=== PATIENT | female | born 1955 | race Caucasian/White ===

== ENCOUNTER 2022-01-06 23:32 | Inpatient (IN) | payer OTHER ==
[2022-01-07] MEDS ORDERED: ONDANSETRON 4 MG/2 ML VIAL IV PRN (00:44)
[2022-01-07] MEDS ORDERED: IPRATROPIUM BROM 0.5MG/2.5ML NEB PRN (00:44)
[2022-01-07] MEDS ORDERED: ALBUTEROL 2.5 MG/3 ML NEB SOL NEB PRN (00:44)
--- NOTE | 2022-01-07 00:57 | P.HP ---
Certification for Inpatient Patient admitted to: Inpatient With expected LOS: >2 Midnights Patient will require the following post-hospital care: None Practitioner: I am a practitioner with admitting privileges, knowledge of patient current condition, hospital course, and medical plan of care. Services: Services provided to patient in accordance with Admission requirements found in Title 42 Section 412.3 of the Code of Federal Regulations Patient History Date of Service: 01/07/22 History of Present Illness: 66-year-old female with history of CAD, hypertension, hyperlipidemia, tobacco abuse presents to the emergency department at outside hospital early yesterday for shortness of breath. She reports that around 0800 yesterday she began to experience shortness of breath at rest and with exertion. She reports similar shortness of breath when she last experienced her myocardial infarction in June of this year, at that time she had a heart catheterization and 1 stent was placed at [facility]. She was subsequently admitted at [facility] for suspected COPD exacerbation her initial troponin was negativehigh-sensitivity around 20, second high-sensitivity troponin was 230.4, BNP was 1616 sodium 142 potassium 4.4 chloride 105 bicarb 26 glucose 199 BUN 20 creatinine 1.19 GFR 48 LFTs within normal range White blood cell count was 11.7 chest x-ray showed comparable appearance of apparent ill-defined opacities at the right lung base since 06/13/2021 suggest at least some appearance is related to overlying soft tissues, component of pneumonia also appears likely. No definite pleural effusion or pneumothorax. Normal cardiac silhouette. CT PE protocol was also performed which revealed no pulmonary embolism is identified. Mild, relatively dependent groundglass opacities within the lower lobes bilaterally. While an infection/inflammatory process is possible given appearance and location these are favored to represent atelectatic changes and/or scarring. Trace right-sided pleural effusion. Incidental 2 mm pulmonary nodule. Follow-up is not required unless patient is high risk in which case follow-up CT of his chest may be considered in 12 months. Her EKG was without ST elevations, she denies any chest pain. She was transferred over to our facility for further evaluation and management of NSTEMI, dyspnea suspected COPD. Allergies No Known Allergies Allergy (Unverified 01/07/22 00:14) Home Medications: Aspirin [Aspirin EC 81 MG] 81 mg PO DAILY 01/07/22 Atorvastatin Calcium [Lipitor] 40 mg PO DAILY 01/07/22 Carvedilol [Coreg] 3.125 mg PO BID 01/07/22 Lisinopril [Zestril] 5 mg PO DAILY 01/07/22 Ticagrelor [Brilinta*] 90 mg PO BID 01/07/22 - Past Medical/Surgical History -: CAD -: Hypertension -: Hyperlipidemia -: x3 Psychosocial/ Personal History: Patient is retired, lives at home with her daughter - Family History Sister -: Cancer (Long) - Social History Smoking Status: Current every day smoker Counseled patient to stop smoking for: less than 10 minutes Smoking therapy provided: No Place of Residence: Home Review of Systems 10-point ROS is otherwise unremarkable Respiratory: Shortness of Breath Physical Examination - Physical Exam General: Alert, In no apparent distress, Oriented x3 HEENT: Atraumatic, PERRLA, Mucous membr. moist/pink, EOMI, Sclerae nonicteric Neck: Supple, 2+ carotid pulse no bruit, No LAD, Without JVD or thyroid abnormality Respiratory: Diminished, Expiratory wheezes Cardiovascular: No edema, Regular rate/rhythm, Normal S1 S2 Capillary refill: <2 Seconds Gastrointestinal: Normal bowel sounds, No tenderness Musculoskeletal: No tenderness Integumentary: No rashes Neurological: Normal speech, Normal strength at 5/5 x4 extr, Normal tone, Normal affect Assessment and Plan - Plan Assessment: NSTEMIhistory CAD Dyspnea Hypertension Hyperlipidemia Incidental finding2 mm right lower lobe pulmonary nodule Plan: NSTEMIhistory CAD: Initial troponin 20, second troponin 230, third troponin pending. Referring physician reported patient received therapeutic Lovenox, patient unsure we will attempt to verify. Continue aspirin, statin, carvedilol, Brilinta. She had a heart catheterization with stent placement in June of this year. She denies any chest pain although she reports a similar presentation of the last CT. Cardiology consulted, echocardiogram ordered. We will monitor on telemetry. Dyspnea: Patient with some mild expiratory wheezing suspect some COPD component, as needed nebulizer treatments ordered continue oral steroids, incentive spirometry. Supplemental oxygen if needed. Hypertension: Home medications continued Hyperlipidemia: Home medications continued Incidental finding2 mm right lower lobe pulmonary nodule: Recommendation as patient is high risk/smoker is for repeat CT scan within 12 months, this was discussed with patient. DVT PPX: Therapeutic Lovenox Code status: Full Discharge Plan: Home Plan to discharge in: 48 Hours - Advance Directives Does patient have a Living Will: No Does patient have a Durable POA for Healthcare: No - Code Status/Comfort Care Code Status Assessed: Yes (Full code) Critical Care: No Time Spent Managing Pts Care (In Minutes): 70
[2022-01-07 01:32] VITALS: BMI 47.1
[2022-01-07] MEDS ORDERED: ACETAMINOPHEN 500 MG TAB PO PRN (01:37)
[2022-01-07 04:09] LABS: Absolute Lymphocytes (CBC) 0.5 K/uL (0.7-4.9); Hematocrit 39.5 % (36.0-45.0); Lymphocytes % 6.8 % (15.3-44.8); MCV 85.5 fL (80-100); MPV 8.4 fL (7.6-11.3); RBC Red Blood Cell Count 4.62 M/uL (3.86-4.86)
[2022-01-07 04:27] LABS: Albumin 3.6 g/dL (3.4-5.0); Bilirubin Total 0.6 mg/dL (0.2-1.0); Potassium 3.6 mmol/L (3.5-5.1); Protein, Total 7.1 g/dL (6.4-8.2)
[2022-01-07 04:36] LABS: Troponin High Sensitivity 352.3 pg/mL (<58.9)
[2022-01-07] MEDS ORDERED: PNEUMOCOCCAL VACCINE 0.5 ML IMVAC ONE (08:00)
[2022-01-07] MEDS ORDERED: POTASSIUM CL SA 10 MEQ TAB PO ONE (08:53)
[2022-01-07] MEDS ORDERED: TICAGRELOR 90 MG TABLET PO SCH (09:00)
[2022-01-07] MEDS ORDERED: carvediloL 3.125 MG TAB PO SCH (09:00)
[2022-01-07] MEDS ORDERED: predniSONE 20 MG TAB PO SCH (09:00)
[2022-01-07] MEDS ORDERED: lisinopriL 5 MG TAB PO SCH (09:00)
[2022-01-07] MEDS ORDERED: KCL 20 MEQ/100 mL IVPB 20 MEQ/100 ML BAG IV SCH (09:00)
[2022-01-07] MEDS ORDERED: ASPIRIN EC 81 MG TAB PO SCH (09:00)
--- NOTE | 2022-01-07 15:08 | CON ---
Date of Consultation: 01/07/2022 Chief Complaint: Shortness of breath. History Of Present Illness: 66-year-old female, history of coronary artery disease, hypertension, dy slipidemia, smoker, recent heart attack with the PCI done in [place]. She apparently was told she h as only one artery that has stenosis and stent was placed. Denies having any chest pain, but she has been having shortness of breath and cough that is dry and no orthopnea or lower extremity edema. No other complaints. Past Medical History: Coronary artery disease, hypertension, dyslipidemia. Past Surgical History: . Medications: Refer reconciliation sheet for detailed list. Allergies: NO KNOWN DRUG ALLERGIES. Family History: No premature coronary artery disease or cancer. Social History: She is a smoker. Does not drink or use any drugs. Review of Systems: All systems reviewed and they were negative except as mentioned in HPI. Physical Examination: Vital signs: Reviewed. Head and Neck: Pupils are equal, reactive to light. Intact eye movements. No JVD. No cervical lym phadenopathy. Neck is supple. Thyroid is not enlarged. Lungs: Rhonchi bilaterally. No accessory muscle use or muscle retraction. Heart: Regular rate and rhythm. No extra sounds. Abdomen: Soft, nontender. Bowel sounds positive. No organomegaly. No masses or hernia. No rigidi ty or rebound. Extremities: No edema, clubbing, or cyanosis. Intact pulses. Skin: No rash. Neurologic: Alert, awake, and oriented x3. No acute focal deficits appreciated. Investigations: Her first troponin was 352. BUN 23, creatinine is 0.99. EKG without acute specific abnormalities. Assessment And Recommendation: 1.Elevated troponin. No chest pain. This is unlikely to be a heart attack or acute coronary syndro me. She does have upper respiratory tract infection, on antibiotics. Trend troponin 2 more sets and obtain echocardiogram and further recommendations will follow. Patient is totally chest pain free. Continue Brilinta and aspirin and statin. 2.Dyslipidemia. Continue statin. 3.Acute bronchitis. Recommend antibiotics short course. SR/MODL Voice ID: [id number] Report ID: [id number]
[2022-01-07 16:19] VITALS: BP 149/62; TEMP 97.6
[2022-01-07 16:38] VITALS: O2SAT 99
[2022-01-07] MEDS ORDERED: ATORVASTATIN 40 MG TAB PO SCH (21:00)
--- NOTE | 2022-01-10 07:24 | ECHO ---
HEIGHT: 5 ft 8 in WEIGHT: 310 lb 1.6 oz DATE OF STUDY: 01/07/[address]: Blair Stevens NP 2-DIMENSIONAL: YES M.MODE: YES DOPPLER: YES COLOR FLOW: YES TDS: PORTABLE: YES DEFINITY: BUBBLE STUDY: DIAGNOSIS: CHEST PAIN CARDIAC HISTORY: CATHERIZATION: YES SURGERY: PROSTHETIC VALVE: PACEMAKER: MEASUREMENTS (cm) DIASTOLIC (NORMALS) SYSTOLIC (NORMALS) IVSd 1.2 (0.6-1.2) LA Diam 5.8 (1.9-4.0) LVEF 60% LVIDd 4.6 (3.5-5.7) LVIDs 3.1 (2.0-3.5) %FS 32% LVPWd 1.3 (0.6-1.2) Ao Diam 2.4 (2.0-3.7) 2 DIMENSIONAL ASSESSMENT: RIGHT ATRIUM: NORMAL LEFT ATRIUM: ENLARGED RIGHT VENTRICLE: NORMAL LEFT VENTRICLE: NORMAL TRICUSPID VALVE: MILD TRICUSPID REGURGITATION MITRAL VALVE: MITRAL ANNULAR CALCIFICATION WITH MILD STENOSIS PULMONIC VALVE: NORMAL AORTIC VALVE: NORMAL PERICARDIAL EFFUSION: NONE AORTIC ROOT: NORMAL LEFT VENTRICULAR WALL MOTION: NORMAL DOPPLER/COLOR FLOW: SEE BELOW COMMENTS: NORMAL LEFT VENTRICULAR EJECTION FRACTION 55-60%. NORMAL WALL MOTION. MILD MITRAL STENOSIS/ MILD MITRAL REGURGIATION. MILD TRICUSPID REGURGITATION. LEFT ATRIAL ENLARGEMENT. TECHNOLOGIST: ESTHER GUEVARA
== END 2022-01-07 16:47 | disposition home or self-care (01) | DRG 191 ==
LOC: 2ND 01-07 00:08
PROVIDERS: ADMIT Hospitalist; ATTEND Hospitalist
DX: J44.1 Chronic obstructive pulmonary disease with (acute) exacerbation (principal); I24.8 Other forms of acute ischemic heart disease; E78.5 Hyperlipidemia, unspecified; I10 Essential (primary) hypertension; I25.10 Atherosclerotic heart disease of native coronary artery without angina pectoris; J44.0 Chronic obstructive pulmonary disease with (acute) lower respiratory infection; J20.9 Acute bronchitis, unspecified; I25.2 Old myocardial infarction; F17.200 Nicotine dependence, unspecified, uncomplicated; R77.8 Other specified abnormalities of plasma proteins; R91.1 Solitary pulmonary nodule; Z95.5 Presence of coronary angioplasty implant and graft; Z79.82 Long term (current) use of aspirin; Z79.52 Long term (current) use of systemic steroids; Z79.899 Other long term (current) drug therapy
CPT/HCPCS: 36415; 80053; 80061; 84484; 85025; 93306; 94010; 94640; J1650; J3480; J7512